=== PATIENT | female | born 2000 | race Caucasian/White ===

== ENCOUNTER 2019-03-04 22:54 | Inpatient (IN) ==
[~2019-03-04 22:54] MED LIST: *HR* Nalbuphine 10 MG/ML AMPUL IVP PRN; Famotidine 20 MG/2 ML VIAL IVP PRN; Metoclopramide 10 MG/2 ML VIAL IVP PRN; Naloxone 0.4 MG/ML INJ IVP PRN; Ondansetron 4 MG/2 ML VIAL IVP PRN; Penicillin G Potassium 5,000,000 UNIT in 0.9 % Sodium Chloride Mini Bag 100 ML IVPB ONE; Ringers Solution, Lactated 1,000 ML ONE
[2019-03-04] MEDS ORDERED: Ringers Solution, Lactated 1,000 ML IVC SCH (23:00)
[2019-03-04 23:29] LABS: Basophils % 0.2 %; Eosinophils # 0.1 K/mcL (0.0-0.6); Eosinophils % 0.9 %; Hematocrit 35.8 % (35.3-44.9); Hemoglobin 12.8 g/dL (11.5-15.4); Immature Granulocytes % 0.3 % (0-4); Lymphocytes # 2.6 K/mcL (0.6-4.6); Mean Corpuscular HGB Conc 35.8 g/dL (31.6-35.5); Mean Corpuscular Volume 86.7 fL (83.0-100.0); Mean Platelet Volume 13.2 fL (9.4-12.4); Monocytes % 6.6 %; Neutrophils # 10.7 K/mcL (1.6-8.9); Platelet Count 193 K/mcL (140-400); Red Blood Count 4.13 M/mcL (3.82-4.97); Red Cell Distribution Width 11.9 % (11.5-14.5); White Blood Count 14.4 K/mcL (4.3-11.1)
[2019-03-05] MEDS ORDERED: Penicillin G Potassium 2,500,000 UNIT in 0.9 % Sodium Chloride 100 ML IVPB SCH
[2019-03-05 00:07] LABS: Amphetamine Screen,Urine Negative ng/mL (Cutoff=1000); Barbiturate Screen,Urine Negative ng/mL (Cutoff=200); Benzodiazepines Screen,Urine Negative ng/mL (Cutoff=200); Cannabinoid Screen,Urine Negative ng/mL (Cutoff = 50); Cocaine Screen,Urine Negative ng/mL (Cutoff= 300); Opiate Screen,Urine Negative ng/mL (Cutoff=300); Phencyclidine Screen,Urine Negative ng/mL (Cutoff=25)
[2019-03-05] MEDS ORDERED: Epidural Premix (fent/bupiv) 110 ML EP SCH (00:15)
--- NOTE | 2019-03-05 00:45 | Anesthesia Evaluation PreOp ---
Date of Encounter: 03/05/19 Time of Encounter: 00:09 - Past History Planned Operation: gus Cardiac History: Denies any Significant Hx Pulmonary History: Denies Any Significant HX, Smoker ASSEMBLY LINE INSPECTOR History: Denies Any Significant HX Other Medical History: Denies Any Significant HX Anesthesia History: No Prior Anesthetic Complications : Yes Test: Positive Alcohol Use: none Drug use: none Medications and Allergies Amoxicillin Susp [Amoxil] 11 ml PO BID #150 mls 05/04/15 [Rx] Acetaminophen w/Cod 300-30 mg [Tylenol w/Codeine #3] 1 tab PO Q6HR PRN #40 tablet 09/18/15 [Rx] Amoxicillin Susp [Amoxil] 5 ml PO Q8HR #150 ml 09/18/15 [Rx] Ibuprofen [Motrin] 1 tab PO Q6HR PRN #200 tab 09/18/15 [Rx] Acetaminophen w/Codeine Soln [Tylenol w/Codeine Liq 120-12 mg] 5 ml PO BID #50 solution 09/24/15 [Rx] Ibuprofen Susp [Motrin Susp] 100 mg PO BID PRN #50 mls 09/24/15 [Rx] Ibuprofen [Motrin] 400 mg PO Q6-8H PRN #30 tablet 12/25/15 [Rx] cephALEXin [Keflex] 500 mg PO BID #14 capsule 07/12/18 [Rx] Nystatin Cream [Mycostatin Cream] 1 appl TP BID #1 tube 09/13/18 [Rx] Allergy/AdvReac Type Severity Reaction Status Date / Time No Known Allergies Allergy Verified 07/11/18 17:53 - Meds/Allergy Pre-op Review Medications Reviewed: Yes Allergies Reviewed: Yes Beta Blockers on Current Med List: No Anesthesia Results - Labs 03/04/19 23:11 Anesthesia Exam - HEENT Pupil (Motor): Pupils equal Mallampati: II Teeth: Normal Oral Opening: Greater than 3 - ASSEMBLY LINE INSPECTOR LOC: Oriented ASSEMBLY LINE INSPECTOR Motor: Normal RUE, Normal LUE, Normal RLE, Normal LLE, Normal Face ASSEMBLY LINE INSPECTOR Sensory: Normal: RUE, LUE, RLE, LLE, Face - Cardiac Rhythm: Regular Murmur: None JVD: No Carotid Bruit: No - Pulmonary Breath Sounds: bilateral Clear Respiratory Effort: Symmetrical Anesthesia Assess/Plan ASA Score: 2 Anesthetic Plan: Epidural
--- NOTE | 2019-03-05 00:47 | Anesthesia Procedures ---
Date of Encounter: 03/05/19 Time of Encounter: 00:09 Procedures: Anesthesia - Epidural/Spinal Patient ID/Chart reviewed: Yes Patient examined: Yes OB Eval: Gestational age: 39.4 OB Eval: : 1 OB Eval: Hx Para: 0 OB Eval: Dilated at (cm): 5 OB Eval: Contractions: Non-stressed pattern Consent Obtained: Yes Site Prep: Aseptic Technique, Sterile prep and drape, Povidone-Iodine 1% Patient position: upright Amount of Local Anesthetic used: 3 Touhy Needle Gauge: 18 Touhy Needle Depth (cm): 8 Catheter Depth at Skin (cm): 10 Test Dose (1.5% Lido + Epi): Volume given (mls): 3 Test Dose Result: Negative Loading Dose: 0.25% Marcaine (mls): 10 Loading Dose Administered: Thru Catheter Infusion Rate (mls/hr): [address]: Tegaderm, Tape Interspace Used: L4-L5 Loss of Resistance (POPPY): Yes Blood: No CSF: No Paresthesia: No Vitals + FHT's: stable throughout see nursing notes
--- NOTE | 2019-03-05 01:50 | OB/GYN History & Physical ---
Date of Encounter: 03/05/19 Time of Encounter: 01:40 Assessment and Plan (1) 39 weeks gestation of Current visit: Yes Status: Acute Admit for labor GBS +; PCN prophylaxis Epidural for pain control SROM - clear fluid roughly 1 hour ago Consider pitocin for augmentation if needed Anticipate vaginal delivery POC per consult with Dr Brantley History of Present Illness Chief complaint: Laboring HPI: Ms. Rueda is a 18 year old at 39 weeks and 4 days that presents to triage with c/o contractions that began yesterday that have progressively gotten worse. She states positive movement. She denies headaches, vision changes, epigastric pain, leaking of fluid, and vaginal bleeding. She was seen by Dr Yee for her care. She has had an uncomplicated . 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 Labs: GBS + HIV NR Hep B NR T Pall NR Rubella Positive Varicella Positive Blood Type O+ Past Med Surg Social Fam HX - Past Medical History Medical history: no medical history Psychiatric history: no psych history - Past Surgical History Surgical History: other Additional surgical history: bilateral tubes in ears - Social History Smoking Status: Current every day smoker Smokeless Tobacco Status: No Alcohol use: none Drug use: none - Family History Mother Hx Family Medical Disorders: No Obstetrical History - Pregnancies : 1 Para: 0 Term: 0 : 0 Ab's: 0 Livin Medications and Allergies Amoxicillin Susp [Amoxil] 11 ml PO BID #150 mls 05/04/15 [Rx] Acetaminophen w/Cod 300-30 mg [Tylenol w/Codeine #3] 1 tab PO Q6HR PRN #40 tablet 09/18/15 [Rx] Amoxicillin Susp [Amoxil] 5 ml PO Q8HR #150 ml 09/18/15 [Rx] Ibuprofen [Motrin] 1 tab PO Q6HR PRN #200 tab 09/18/15 [Rx] Acetaminophen w/Codeine Soln [Tylenol w/Codeine Liq 120-12 mg] 5 ml PO BID #50 solution 09/24/15 [Rx] Ibuprofen Susp [Motrin Susp] 100 mg PO BID PRN #50 mls 09/24/15 [Rx] Ibuprofen [Motrin] 400 mg PO Q6-8H PRN #30 tablet 12/25/15 [Rx] cephALEXin [Keflex] 500 mg PO BID #14 capsule 07/12/18 [Rx] Nystatin Cream [Mycostatin Cream] 1 appl TP BID #1 tube 09/13/18 [Rx] Allergy/AdvReac Type Severity Reaction Status Date / Time No Known Allergies Allergy Verified 07/11/18 17:53 Review of System OB All systems PM: reviewed and no additional remarkable complaints except as stated Exam - Constitutional Constitutional: well developed, well nourished, no acute distress, average body habitus - HEENT HEENT: Normocephaly, Mucus Membranes Moist - Neck Neck exam: full ROM - Lungs Respiratory exam: CTAB - Cardiovascular Cardiovascular exam: RRR, +S1, +S2 - Abdomen Abdomen: Present: bowel sounds normal, gravid, non tender - Extremities Extremities exam: normal capillary refill, normal inspection, radial pulses palpable and symmetrical Deep Tendon Reflex Grade: 2+ Normal - Vagina Vagina: Present: normal moisture - Cervix Dilation: 5 Effacement: 100 Station: +1 Results Result Diagrams: 03/04/19 23:11 Abnormal lab results WBC 14.4 K/mcL (4.3-11.1) H 03/04/19 23:11 MCHC 35.8 g/dL (31.6-35.5) H 03/04/19 23:11 MPV 13.2 fL (9.4-12.4) H 03/04/19 23:11 Neutrophils # 10.7 K/mcL (1.6-8.9) H 03/04/19 23:11 All other labs normal. - VTE Reasons for not Prescribing Prophylaxis: Treatment not Indicated - Low risk for VTE
[2019-03-05] MEDS ORDERED: Oxytocin 20 units/ LR 1000 mL 20 UNIT/1,000 ML BAG IVC ONE ×2 (03:02→05:52)
--- NOTE | 2019-03-05 03:52 | OB/GYN Procedure Note ---
Delivery - Delivery Date: 03/05/19 Provider: Laurel Barraza Intrapartum events: none Delivery induction: none Delivery monitor: external FHT, external uterine Anesthesia: epidural Quantitated Blood Loss: 100 - Infant (s) Infant A Delivery Date: 03/05/19 Infant Delivery Time: 03:01 Presentation: vertex Position: YUMI Route of delivery: Gender: Male Viability: Viable Pounds: 6 Ounces: 4 Weight Gram: 2.84 kg at 1 minute: 5 at 5 mins: 9 Shoulder Dystocia: not encountered Specimens collected: cord blood Placenta: spontaneous Cord: 3 umbilical vessels - Repair Episiotomy: none Laceration Description: Labial (right labial clioral) - Complications Delivery complications: none Delivery comments: Patient pushed to of viable male in the YUMI position. No nuchal cord, no shoulder dystocia, and no meconium stained fluid noted. Infant placed on maternal abdomen, warmed, dried, and stimulated. Infant did not start spontaneous respirations; cord was double clamped and cut and taken to warmer for resuscitation. Apgars 5 and 9 at one and five minutes of age respectively. Placenta delivered spontaneously and appears grossly intact with 3 vessel cord. Upon perineal inspection, a right labial - clitoral laceration is noted. Repaired in the usual fashion with 3-0 monocryl. EBL 100mL. and mother in skin to skin for 2 hour recovery. Fundus firm and at U/[address] Brantley notified of delivery. - Disposition Mom disposition: stable in LDR [place] disposition: stable in LDR
[2019-03-05] MEDS ORDERED: Measles/Mumps/Rubella Vacc 0.5 ML VIAL SQ PRN (05:52)
[2019-03-05] MEDS ORDERED: Ibuprofen 600 MG TABLET PO PRN (05:52)
[2019-03-05] MEDS ORDERED: Oxytocin 20 units/ LR 1000 mL 20 UNIT/1,000 ML BAG IVC SCH (05:52)
[2019-03-05] MEDS ORDERED: Acetaminophen 325 MG TABLET PO PRN (05:52)
[2019-03-05] MEDS: Prenatal Vit/FA 1 EACH TABLET PO SCH (09:27)
[2019-03-06] MEDS: Prenatal Vit/FA 1 EACH TABLET PO SCH (07:39)
[2019-03-06 08:12] VITALS: BP 121/80
--- NOTE | 2019-03-06 09:27 | Discharge Summary ---
Date of Encounter: 03/06/19 Time of Encounter: 09:24 - Discharge Diagnosis (1) Vaginal delivery Priority: Primary Status: Acute Comments: Stable, meeting all PP milestones, pain well managed, desires discharge - Discharge Medications Prescriptions: New Acetaminophen [Tylenol] 650 mg PO Q6HR PRN tablet PRN Reason: Mild Pain Ibuprofen [Motrin] 600 mg PO Q6H PRN #60 tablet PRN Reason: Cramping Docusate [Colace] 100 mg PO BID #0 capsule Discontinued Amoxicillin Susp [Amoxil] 11 ml PO BID #150 mls Acetaminophen w/Cod 300-30 mg [Tylenol w/Codeine #3] 1 tab PO Q6HR PRN #40 tablet PRN Reason: Pain Ibuprofen [Motrin] 1 tab PO Q6HR PRN #200 tab PRN Reason: Pain Amoxicillin Susp [Amoxil] 5 ml PO Q8HR #150 ml Acetaminophen w/Codeine Soln [Tylenol w/Codeine Liq 120-12 mg] 5 ml PO BID #50 solution Ibuprofen Susp [Motrin Susp] 100 mg PO BID PRN #50 mls PRN Reason: Pain Ibuprofen [Motrin] 400 mg PO Q6-8H PRN #30 tablet PRN Reason: Fever/Pain cephALEXin [Keflex] 500 mg PO BID #14 capsule Nystatin Cream [Mycostatin Cream] 1 appl TP BID #1 tube Home Medications: Acetaminophen [Tylenol] 650 mg PO Q6HR PRN tablet 03/06/19 [Rx] Docusate [Colace] 100 mg PO BID #0 capsule 03/06/19 [Rx] Ibuprofen [Motrin] 600 mg PO Q6H PRN #60 tablet 03/06/19 [Rx] Allergies/Adverse Reactions: Allergy/AdvReac Type Severity Reaction Status Date / Time No Known Allergies Allergy Verified 07/11/18 17:53 Data Procedures and tests throughout hospitalization: Laboratory Tests 03/04/19 03/04/19 23:11 23:11 WBC 14.4 H RBC 4.13 Hgb 12.8 Hct 35.8 MCV 86.7 MCH 31.0 MCHC 35.8 H RDW 11.9 Plt Count 193 MPV 13.2 H Immature Gran % 0.3 Seg Neutrophils % 74.0 Lymphocytes % 18.0 Monocytes % 6.6 Eosinophils % 0.9 Basophils % 0.2 Neutrophils # 10.7 H Lymphocytes # 2.6 Monocytes # 1.0 Eosinophils # 0.1 Basophils # 0.0 Urine Opiates Screen Negative Ur Buprenorphine Scrn Negative Ur Barbiturates Screen Negative Ur Phencyclidine Scrn Negative Ur Amphetamines Screen Negative U Benzodiazepines Scrn Negative Urine Cocaine Screen Negative U Marijuana (THC) Screen Negative Ur Drug Screen Interp See Below Date of admission: 03/04/19 22:54 Primary care physician: Sunshine Almonte MD Consults: 03/05/19 05:52 Consult to Typewriter Mechanic [CONS] Routine Comment: Vaginal delivery, consult needed Consult to Plumber Pipe Fitting [CONS] Routine Reason for SW Consult: Check to make sure she has all needed for baby - 18 yo Discharging clinician: Ashley Main Anticipated date of discharge: 03/06/19 - Patient Status Disposition: Home, Self-Care Condition: Good Functional capacity at discharge: independent ambulation Overall status at discharge: patient is back to baseline - Discharge Instructions Follow Up With: Sunshine Almonte MD [Primary Care Provider] - Verna Yee DO [Partnered Physician] - - Diet and Activity Activity: resume usual activities as tolerated Diet: regular diet Hospital Course Episiotomy: none Other procedures: none complications: none Discharge diagnosis: IUP at term delivered [place] baby: male Hospital course: Delivery - Delivery Date: 03/05/19 Provider: Laurel Barraza Intrapartum events: none Delivery induction: none Delivery monitor: external FHT, external uterine Anesthesia: epidural Quantitated Blood Loss: 100 - (s) A Delivery Date: 03/05/19 Delivery Time: 03:01 Presentation: vertex Position: YUMI Route of delivery: Gender: Male Viability: Viable Pounds: 6 Ounces: 4 Weight Gram: 2.84 kg at 1 minute: 5 at 5 mins: 9 Shoulder Dystocia: not encountered Specimens collected: cord blood Placenta: spontaneous Cord: 3 umbilical vessels - Repair Episiotomy: none Laceration Description: Labial (right labial clioral) - Complications Delivery complications: none Delivery comments: Patient pushed to of viable male in the YUMI position. No nuchal cord, no shoulder dystocia, and no meconium stained fluid noted. placed on maternal abdomen, warmed, dried, and stimulated. Infant did not start spontaneous respirations; cord was double clamped and cut and taken to warmer for resuscitation. Apgars 5 and 9 at one and five minutes of age respectively. Placenta delivered spontaneously and appears grossly intact with 3 vessel cord. Upon perineal inspection, a right labial - clitoral laceration is noted. Repaired in the usual fashion with 3-0 monocryl. EBL 100mL. and mother in skin to skin for 2 hour recovery. Fundus firm and at U/[address] Brantley notified of delivery. - Disposition Mom disposition: stable in PP and appropriate for discharge Time spent discussing smoking cessation with patient: 3 to 10 minutes Time Attestation: Total time spent providing and/or coordinating discharge services: Time Spent: Less than 30 minutes Exam - Constitutional Vitals: Temp Pulse Resp BP Pulse Ox 97.7 F 85 20 121/80 96 03/06/19 08:12 03/06/19 08:12 03/06/19 08:12 03/06/19 08:12 03/06/19 08:12 General appearance IM: A&O X 3 - Respiratory Respiratory exam: Present: CTAB - Cardiovascular Cardiovascular exam IM: Present: RRR - GI/Abdominal GI/Abdominal exam IM: soft - Uterine Tone: Firm Uterus Position: At Umbilicus - Extremities Exam Extremities exam IM: Present: normal capillary refill, normal inspection - Neurological Exam Neurological exam: normal gait, oriented X3 - Psychiatric Additional comments: reports good mood
== END 2019-03-06 15:33 | disposition home or self-care (01) | DRG 560 ==
LOC: 1NENULAB → 1NENUOBS 03-05 07:15
PROVIDERS: ADMIT Advanced Practice Midwife; ATTEND Advanced Practice Midwife

== ENCOUNTER 2020-08-30 09:54 | Inpatient (IN) ==
[2020-08-30] MEDS ORDERED: Metoclopramide 10 MG/2 ML VIAL IVP PRN (11:13)
[2020-08-30] MEDS ORDERED: Famotidine 20 MG/2 ML VIAL IVP PRN (11:13)
[2020-08-30] MEDS ORDERED: Naloxone 0.4 MG/ML INJ IVP PRN (11:13)
[2020-08-30] MEDS ORDERED: miSOPROStoL 25 MCG TABLET PO PRN (11:13)
[2020-08-30] MEDS ORDERED: *HR* FentaNYL (PF) 100 MCG/2 ML VIAL IVP PRN (11:13)
[2020-08-30] MEDS ORDERED: Penicillin G Potassium 5,000,000 UNIT in 0.9 % Sodium Chloride Mini Bag 100 ML IVPB ONE (11:13)
[2020-08-30 11:41] LABS: Basophils % 0.3 %; Eosinophils # 0.1 K/mcL (0.0-0.6); Eosinophils % 1.1 %; Hematocrit 33.8 % (35.3-44.9); Hemoglobin 11.7 g/dL (11.5-15.4); Immature Granulocytes % 0.7 % (0-4); Lymphocytes # 2.7 K/mcL (0.6-4.6); Lymphocytes % 23.1 %; Mean Corpuscular HGB Conc 34.6 g/dL (31.6-35.5); Mean Corpuscular Volume 89.4 fL (83.0-100.0); Mean Platelet Volume 12.6 fL (9.4-12.4); Monocytes # 0.9 K/mcL (0.0-1.3); Monocytes % 7.3 %; Neutrophils # 7.9 K/mcL (1.6-8.9); Platelet Count 205 K/mcL (140-400); Red Blood Count 3.78 M/mcL (3.82-4.97); Red Cell Distribution Width 12.7 % (11.5-14.5); Segmented Neutrophils % 67.5 %; White Blood Count 11.7 K/mcL (4.3-11.1)
[2020-08-30] MEDS: Ringers Solution, Lactated 1,000 ML IVC SCH ×2 (11:54→14:46)
[2020-08-30 11:58] LABS: Amphetamine Screen,Urine Negative ng/mL (Cutoff=1000); Barbiturate Screen,Urine Negative ng/mL (Cutoff=200); Benzodiazepines Screen,Urine Negative ng/mL (Cutoff=200); Cannabinoid Screen,Urine Positive ng/mL (Cutoff = 50); Cocaine Screen,Urine Negative ng/mL (Cutoff= 300); Opiate Screen,Urine Negative ng/mL (Cutoff=300); Phencyclidine Screen,Urine Negative ng/mL (Cutoff=25)
[2020-08-30] MEDS ORDERED: Ropivacaine/PF 0.2% 20 ML VIAL EP ONE (13:46)
[2020-08-30] MEDS ORDERED: *HR* FentaNYL (PF) 100 MCG/2 ML VIAL EP ONE (13:46)
[2020-08-30] MEDS ORDERED: EPHEDrine 50 MG/ML VIAL IVP PRN (13:46)
[2020-08-30] MEDS ORDERED: *HR* FentaNYL (PF) 100 MCG/2 ML VIAL ONE ×2 (13:50→20:22)
[2020-08-30] MEDS ORDERED: Ropivacaine/PF 0.2% 20 ML VIAL ONE (13:50)
[2020-08-30] MEDS: Epidural Premix (fent/bupiv) 110 ML EP SCH ×2 (14:54→20:22)
[2020-08-30] MEDS: Penicillin G Potassium 2,500,000 UNIT in 0.9 % Sodium Chloride 100 ML IVPB SCH ×2 (16:06→19:26)
[2020-08-30] MEDS ORDERED: Oxytocin 20 units/ LR 1000 mL 20 UNIT/1,000 ML BAG IVC SCH (16:30)
[2020-08-30] MEDS ORDERED: Ondansetron 4 MG/2 ML VIAL IVP PRN (19:30)
[2020-08-30] MEDS ORDERED: Ondansetron 4 MG/2 ML VIAL ONE (19:31)
[2020-08-30] MEDS ORDERED: Lanolin 7 G OINT...G. TP PRN (22:11)
[2020-08-30] MEDS ORDERED: Ibuprofen 600 MG TABLET PO PRN (22:11)
[2020-08-30] MEDS ORDERED: Benzocaine/Menthol 56 GM AEROSOL SPRAY TP PRN (22:11)
[2020-08-30] MEDS ORDERED: Acetaminophen 325 MG TABLET PO PRN (22:11)
[2020-08-30] MEDS ORDERED: Oxytocin 20 units/ LR 1000 mL 20 UNIT/1,000 ML BAG IVC ONE (22:11)
[2020-08-31] MEDS ORDERED: Ondansetron 4 MG/2 ML VIAL IM ONE (01:37)
[2020-08-31 05:11] LABS: Basophils % 0.2 %; Eosinophils % 0.3 %; Hematocrit 29.2 % (35.3-44.9); Immature Granulocytes % 0.4 % (0-4); Lymphocytes # 2.7 K/mcL (0.6-4.6); Lymphocytes % 16.9 %; Mean Corpuscular HGB Conc 34.6 g/dL (31.6-35.5); Mean Corpuscular Volume 89.6 fL (83.0-100.0); Mean Platelet Volume 12.9 fL (9.4-12.4); Monocytes # 1.4 K/mcL (0.0-1.3); Monocytes % 8.8 %; Neutrophils # 11.6 K/mcL (1.6-8.9); Platelet Count 170 K/mcL (140-400); Red Blood Count 3.26 M/mcL (3.82-4.97); Red Cell Distribution Width 12.6 % (11.5-14.5); Segmented Neutrophils % 73.4 %; White Blood Count 15.8 K/mcL (4.3-11.1)
[2020-08-31 05:12] LABS: Hemoglobin 10.1 g/dL (11.5-15.4)
[2020-08-31] MEDS: Prenatal Vit/FA 1 EACH TABLET PO SCH (10:31)
[2020-08-31] MEDS: Oxytocin 20 units/ LR 1000 mL 20 UNIT/1,000 ML BAG IVC SCH ×2 (15:15→15:16)
[2020-09-01] MEDS: Prenatal Vit/FA 1 EACH TABLET PO SCH (07:43)
[2020-09-01 07:59] VITALS: BP 109/80
== END 2020-09-01 11:50 | disposition home or self-care (01) | DRG 560 ==
LOC: 1NENULAB 09:54 → 1NENUOBS 08-31 00:18
PROVIDERS: ADMIT Obstetrics & Gynecology; ATTEND Obstetrics & Gynecology